=== PATIENT | male | born 1930 | race Caucasian/White ===

== ENCOUNTER 2016-09-10 23:55 | Inpatient (IN) | payer OTHER ==
[~2016-09-10] VITALS: Ht 172.7 cm; Wt 63.8 kg
[~2016-09-10 23:55] MED LIST: AMLODIPINE BESY10 MG PO; BETAMETHASONE D45 GM; Depakote ER (Extende PO; LOW DOSE ASPIRI81 M1 PO; METOPROLOL TART50 MG PO; MOTRIN600 MG PO; RAMIPRIL10 MG PO; SIMVASTATIN40 MG PO
[2016-09-11 00:45] LABS: HEMATOCRIT 29.7 % (38.0-50.0); MCH 30.9 PG (29.0-34.0); MCHC 35.4 G/DL (30.0-36.0); MCV 87.4 FL (86-99); MEAN PLAT.VOLUME 9.5 uM^3 (9.0-12.4); PLATELET COUNT 207 K/uL (156-360); RBC DIS.WIDTH-CV 13.5 % (11.8-14.6); RBC DIS.WIDTH-SD 41.4 % (39-53); WHITE BLOOD COUNT 7.7 K/uL (4.1-10.2)
[2016-09-11 00:57] LABS: CHLORIDE 97 mEq/L (99-109); POTASSIUM 3.8 mEq/L (3.7-5.4); SODIUM 129 mEq/L (136-147)
[2016-09-11 00:59] LABS: GLUCOSE 175 mg/dL (70-99)
[2016-09-11 01:01] LABS: ANION GAP 10 MEQ/L (2-14)
[2016-09-11 01:03] LABS: GFR ESTIMATE (CALCULATED) > 59 mL/min/
[2016-09-11 01:04] LABS: UREA NITROGEN (BUN) 27 mg/dL (9-23)
[2016-09-11 01:05] LABS: CREATINE KINASE 105 IU/L (1-294)
[2016-09-11] MEDS ORDERED: ZOCOR20 MG PO (12:55)
[2016-09-11] MEDS ORDERED: DOXAZOSIN MESYLA1 MG PO (12:56)
[2016-09-11] MEDS ORDERED: CARTIA XT180 MG PO (12:56)
[2016-09-11] MEDS ORDERED: CHLORTHALIDONE25 MG PO (12:57)
[2016-09-11] MEDS ORDERED: FOLBEE TABLET1 EACH PO (12:57)
[2016-09-11] MEDS ORDERED: DAILY VITE1 EAC1 PO (12:58)
[2016-09-11 21:56] VITALS: BP 141/63
[2016-09-11 22:20] VITALS: BP 141/63
[2016-09-11 23:38] VITALS: BP 162/73
[2016-09-12 03:56] VITALS: BP 144/66
[2016-09-12 05:29] LABS: HEMATOCRIT 29.7 % (38.0-50.0); MCH 30.5 PG (29.0-34.0); MCHC 34.3 G/DL (30.0-36.0); MCV 88.9 FL (86-99); MEAN PLAT.VOLUME 10.2 uM^3 (9.0-12.4); PLATELET COUNT 191 K/uL (156-360); RBC DIS.WIDTH-CV 14.1 % (11.8-14.6); RBC DIS.WIDTH-SD 45.9 % (39-53); RED BLOOD COUNT 3.34 M/uL (4.00-5.50); WHITE BLOOD COUNT 4.7 K/uL (4.1-10.2)
[2016-09-12 05:54] LABS: ALKALINE PHOSPHATASE 88 IU/L (3-129); ANION GAP 5 MEQ/L (2-14); CHLORIDE 104 MEQ/L (99-109); GFR ESTIMATE (CALCULATED) > 59 mL/min/; POTASSIUM 4.1 MEQ/L (3.7-5.4); SAMPLE HEMOLYSIS CHECK 0; SAMPLE ICTERIC CHECK 0; SAMPLE LIPEMIA CHECK 0; TOTAL BILIRUBIN 0.5 MG/DL (0.0-1.0); UREA NITROGEN (BUN) 17 mg/dL (9-23)
[2016-09-12 05:55] LABS: GLUCOSE 103 mg/dL (70-99); SODIUM 137 MEQ/L (136-147)
[2016-09-12 07:53] VITALS: BP 171/74
[2016-09-12 12:50] VITALS: BP 165/75
[2016-09-12] MEDS ORDERED: LEVETIRACETAM500 MG PO (15:12)
== END 2016-09-12 15:58 | disposition home or self-care (01) | DRG 101 ==
LOC: EME → EDBD 23:55 → EME 23:55 → EDOF 09-11 06:03 → 3EAST 09-11 21:51
PROVIDERS: Nurse Practitioner Adult Health; Physician Assistant Medical
DX: G40.909 Epilepsy, unspecified, not intractable, without status epilepticus (principal); E87.1 Hypo-osmolality and hyponatremia; R73.03 Prediabetes; I10 Essential (primary) hypertension; I25.10 Atherosclerotic heart disease of native coronary artery without angina pectoris; Z95.5 Presence of coronary angioplasty implant and graft; Z95.0 Presence of cardiac pacemaker; N40.0 Benign prostatic hyperplasia without lower urinary tract symptoms; D64.9 Anemia, unspecified
CPT/HCPCS: 70450; 80048; 80053; 80164; 82550; 85027; 95819; 99281; 99285; J1644; J1953; J2060; J7030; J7050

== ENCOUNTER 2017-09-24 15:05 | Emergency (ER) | payer OTHER ==
[~2017-09-24] VITALS: Ht 170.2 cm; Wt 71.4 kg
[~2017-09-24 15:05] MED LIST changes: +CARTIA XT180 MG PO; +CHLORTHALIDONE25 MG PO; +DAILY VITE1 EAC1 PO; +DOXAZOSIN MESYLA1 MG PO; +FOLBEE TABLET1 EACH PO; +LEVETIRACETAM500 MG PO; +LUTEIN6 MG PO; +SPRITAM250 MG PO; +ZOCOR20 MG PO
[2017-09-24 16:35] LABS: BASOPHIL (%) 0.3 % (0-1); EOSINOPHIL COUNT 0.1 K/uL (0-0.3); HEMOGLOBIN 7.7 G/DL (12.5-16.6); IMMATURE GRANULOCYTE (%) 0.3 % (0.0-0.7); LYMPHOCYTE (%) 14.7 % (15-42); LYMPHOCYTE COUNT 0.9 K/uL (1.0-2.8); MCH 30.7 PG (29.0-34.0); MCV 87.6 FL (86-99); MONOCYTE (%) 8.8 % (3-12); MONOCYTE COUNT 0.5 K/uL (0-0.8); NEUTROPHIL (%) 74.9 % (45-76); NEUTROPHIL COUNT 4.3 K/uL (1.8-6.4); PLATELET COUNT 196 K/uL (156-360); RBC DIS.WIDTH-CV 18.7 % (11.8-14.6); RBC DIS.WIDTH-SD 58.4 % (39-53); RED BLOOD COUNT 2.51 M/uL (4.00-5.50); WHITE BLOOD COUNT 5.8 K/uL (4.1-10.2)
[2017-09-24 16:46] LABS: ALBUMIN 3.6 g/dL (3.2-4.8); CHLORIDE 103 mEq/L (99-109); POTASSIUM 4.6 mEq/L (3.7-5.4); SODIUM 134 mEq/L (136-147)
[2017-09-24 16:48] LABS: GLUCOSE 141 mg/dL (70-99)
[2017-09-24 16:49] LABS: TOTAL PROTEIN 5.8 g/dL (6.4-8.3)
[2017-09-24 16:50] LABS: APPEARANCE CLEAR ((CLEAR)); BILIRUBIN NEGATIVE; BLOOD NEGATIVE; COLOR YELLOW ((YELLOW)); GLUCOSE (STRIP) NEGATIVE; KETONES NEGATIVE; LEUKOCYTES NEGATIVE; NITRITE NEGATIVE; PROTEIN (STRIP) NEGATIVE; SPECIFIC GRAVITY 1.012 (1.000-1.030); UCUL ADDED? NO; UROBILINOGEN 0.2 MG/DL (0.2-1.0)
[2017-09-24 16:51] LABS: TOTAL BILIRUBIN 0.4 mg/dL (0.0-1.0)
[2017-09-24 16:52] LABS: ALKALINE PHOSPHATASE 136 IU/L (3-129); CREATININE 1.2 mg/dL (0.6-1.3); GFR ESTIMATE (CALCULATED) > 59 mL/min/ (58.99-99999)
[2017-09-24 16:53] LABS: UREA NITROGEN (BUN) 25 mg/dL (9-23)
[2017-09-24 16:54] LABS: AST (GOT) 22 IU/L (2-34)
[2017-09-24 16:55] LABS: ALT (GPT) 13 IU/L (3-49)
[2017-09-24] MEDS ORDERED: KEPPRA500 MG PO (17:38)
[2017-09-24 18:03] VITALS: BP 132/67
== END 2017-09-24 18:05 | disposition home or self-care (01) ==
LOC: EME 15:05
PROVIDERS: Emergency Medicine
DX: G40.909 Epilepsy, unspecified, not intractable, without status epilepticus (principal); E11.9 Type 2 diabetes mellitus without complications; I10 Essential (primary) hypertension; G47.30 Sleep apnea, unspecified; Z79.82 Long term (current) use of aspirin; Z87.442 Personal history of urinary calculi; Z95.0 Presence of cardiac pacemaker; Z95.9 Presence of cardiac and vascular implant and graft, unspecified
CPT/HCPCS: 80053; 81003; 83930; 85025; 93005; 99281; 99285